=== PATIENT | female | born 1980 | race Caucasian/White ===

== ENCOUNTER 2018-09-11 20:06 | Emergency (ER) | payer OTHER, MEDICAID ==
[~2018-09-11] VITALS: Ht 172.7 cm; Wt 77.0 kg
[2018-09-11 20:23] VITALS: BP 128/80
[2018-09-11] MEDS ORDERED: TETanus/Pertussis (Acell)/Diphther VAC/PF (Tdap-Adult) 0.5ml syringe IM ONE (21:25)
[2018-09-11] MEDS ORDERED: AMOX-580 PO (22:15)
[2018-09-11] MEDS ORDERED: FLUC150T PO (22:15)
== END 2018-09-11 22:21 | disposition home or self-care (01) ==
LOC: ER 20:08
DX: S01.511A Laceration without foreign body of lip, initial encounter (principal); S41.132A Puncture wound without foreign body of left upper arm, initial encounter; S41.131A Puncture wound without foreign body of right upper arm, initial encounter; S61.432A Puncture wound without foreign body of left hand, initial encounter; S61.431A Puncture wound without foreign body of right hand, initial encounter; W54.0XXA Bitten by dog, initial encounter; Y93.89 Activity, other specified; Y92.89 Other specified places as the place of occurrence of the external cause; Y99.8 Other external cause status
CPT/HCPCS: 12013; 90471; 90715; 99283